=== PATIENT | female | born 1985 | race Caucasian/White ===

== ENCOUNTER 2017-03-23 13:26 | Emergency (ER) | payer MEDICAID ==
[2017-03-23 13:30] VITALS: BP 117/96; PULSE 77; RESP 16; TEMP 98.2; O2SAT 99
--- NOTE | 2017-03-23 13:48 | EDPHY ---
H & P Stated Complaint: fall hit head Time Seen by Provider: 03/23/17 13:41 HPI/ROS: CHIEF COMPLAINT: Mechanical fall 2 days ago, persistent headache and neck pain HISTORY OF PRESENT ILLNESS: The patient had a mechanical fall at her home 2 days ago. She is uncertain whether she experienced a loss of consciousness. The patient has had a persistent frontal headache since her fall. She is also having increasing posterior neck pain. The patient denies any focal numbness or weakness. She is having some subjective blurry vision. The patient denies any acute back pain, chest pain, difficulty breathing or extremity pain. The patient denies taking anticoagulants or anti-platelet therapy. The patient does have a history of a ureteral reconstruction performed earlier this year secondary to stenosis. REVIEW OF SYSTEMS: A comprehensive 10 point review of systems is otherwise negative aside from elements mentioned in the history of present illness. Source: Patient Exam Limitations: No limitations - Personal History LMP (Females 10-55): 22-28 Days Ago Current Tetanus/Diphtheria Vaccine: Yes Current Tetanus Diphtheria and Acellular Pertussis (TDAP): Yes - Medical/Surgical History Hx Asthma: No Hx Chronic Respiratory Disease: No Hx Diabetes: No Hx Cardiac Disease: No Hx Renal Disease: Yes Hx Cirrhosis: No Hx Alcoholism: No Hx HIV/AIDS: No Hx Splenectomy or Spleen Trauma: No Other PMH: kidney stone, [id number] stents/nephrostomy tubes L side, congenital UPJ with stricture and stenosis, migraines, GERD, UTI-ecoli. - Social History Smoking Status: Never smoked - Physical Exam Exam: General Appearance: Alert, no distress Head: Tenderness to palpation in the occipital lobe, superficial abrasion noted over right forehead Eyes: Pupils equal, round, reactive ENT, Mouth: No hemotympanum, no oral trauma Neck: Tenderness to palpation in the mid cervical spine Respiratory: No chest wall tender, subcutaneous air, lungs clear bilaterally Cardiovascular: Regular rate and rhythm Abdomen: Abdomen is soft and nontender, pelvis stable Skin: No lacerations, No abrasion Back: No midline T/L/S pain Extremities: Nontender, full range of motion Neurological: A&Ox3, normal motor function, normal sensory exam Constitutional: Initial Vital Signs Temperature (C) 36.8 C 03/23/17 13:28 Heart Rate 77 03/23/17 13:28 Respiratory Rate 16 03/23/17 13:28 Blood Pressure 117/96 H 07/25/17 13:28 O2 Sat (%) 99 03/23/17 13:28 O2 Delivery Mode Room Air Allergies/Adverse Reactions: vancomycin Allergy (Severe, Verified 07/05/16 11:02) Anaphylaxis amitriptyline Allergy (Verified 07/05/16 11:02) Home Medications: Medication Instructions Recorded Herbals/Supplements -Info Only 1 ea PO DAILY 03/12/16 Pantoprazole Sodium [Protonix 40mg 40 mg PO DAILY 03/12/16 (*)] Multivitamins [Multivitamin (*)] 1 each PO DAILY 06/08/16 Naloxone HCl [Narcan] 0.4 mg IVP PRN PRN #0 inj 06/30/16 oxyCODONE CR [Oxycontin] 60 mg PO BID #30 tab 06/30/16 oxyCODONE IR [Oxycodone Ir (*)] 5 - 10 mg PO Q6HRS PRN #30 tab 06/30/16 Medical Decision Making - Diagnostics Imaging Results: Imaging Impressions Cervical Spine CT 03/23/17 13:46 Impression: No acute posttraumatic abnormality identified. Findings discussed with Reji Johnson 03/23/2017, at [address] 03/23/17 13:46 Impression: No acute intracranial findings. Findings discussed with Reji Johnson 03/23/2017, at 1420 hours. ED Course/Re-evaluation: The patient presents to the ED after mechanical fall with complaints of headache and neck pain. She is noted to be neurologically intact. The patient was placed in a cervical collar. A stat CT scan of the head and cervical spine were ordered given the patient's complaints of severe headache and neck pain. Fortunately, the patient's CT head and cervical spine are negative. These imaging studies were reviewed by myself and reported to me by Dr. Chauhan from Radiology. I re-evaluated the patient at 2:30 p.m.. She continues to be neurologically intact. The patient will be discharged home with concussion aftercare instruction. She is referred to our concussion specialist and given customary aftercare instructions and return precautions. The patient is instructed to use NSAIDs and Tylenol as needed for pain. She was given a 600 mg dose of ibuprofen in the emergency department. Differential Diagnosis: Differential diagnosis considered includes concussion, intracranial hemorrhage, cervical spine fracture, hematoma Departure - Departure Disposition: Home, Routine, Self-Care Clinical Impression: Concussion, Cervical strain, acute Condition: Good Instructions: Cervical Strain (ED), Concussion (ED) Additional Instructions: 1. Take Ibuprofen or Motrin 600 mg by mouth three times a day. Tylenol 650 mg every 6 hours as needed for pain. 2. Concussion care as specified in the concussion care book you have been given. 3. Please schedule a follow-up appointment with our concussion specialist, Dr. Syed, for any symptoms which persists past 5-7 days Referrals: Suha George MD [Primary Care Provider] - As per Instructions Terrie Syed MD [Medical Doctor] - As per Instructions
[2017-03-23] MEDS ORDERED: IBUPROFEN 200 MG TAB PO ONE (14:41)
[2017-03-23] MEDS ORDERED: ACETAMINOPHEN 325 MG TAB PO ONE (14:46)
== END 2017-03-23 15:12 | disposition home or self-care (01) ==
DX: S06.0X0A Concussion without loss of consciousness, initial encounter (principal); S16.1XXA Strain of muscle, fascia and tendon at neck level, initial encounter; W18.39XA Other fall on same level, initial encounter; Y92.009 Unspecified place in unspecified non-institutional (private) residence as the place of occurrence of the external cause

== ENCOUNTER → 2019-02-08 | Outpatient (CLI) | payer MEDICAID | LOC: FIMAGING 09:58 ==

== ENCOUNTER → 2019-02-16 | Outpatient (CLI) | payer MEDICAID | LOC: FIMAGING 09:50 ==